=== PATIENT | male | born 1985 | race Hispanic/Latino ===

== ENCOUNTER 2022-11-23 06:58 | Day surgery (SDC) | payer BC ==
[2022-11-16 15:35] LABS: BASOPHILS % (AUTO) 0.7 % (0.0-5.0); EOSINOPHILS % (AUTO) 1.3 % (0.0-8.0); LYMPHOCYTES % (AUTO) 33.1 % (21.0-51.0); MEAN CORPUSCULAR HEMOGLOBIN 29.4 pg (27.0-33.0); MEAN CORPUSCULAR HGB CONC 32.2 g/dL (32.0-36.0); MEAN CORPUSCULAR VOLUME 91.1 fL (79-99); MONOCYTES % (AUTO) 10.3 % (3.0-13.0); NEUTROPHILS % (AUTO) 54.3 % (40.0-77.0); PLATELET COUNT (AUTO) 241 K/uL (130-400); RED BLOOD CELL COUNT(AUTO) 5.38 MIL/uL (4.50-6.20); RED CELL DISTRIBUTION WIDTH 14.9 % (11.0-15.5); WHITE BLOOD COUNT (AUTO) 9.6 K/uL (4.8-10.8)
[2022-11-16 17:33] VITALS: BP 156/97
[2022-11-23] VITALS (17 sets, daily range): BP systolic 130–156; BP diastolic 85–107
[~2022-11-23] VITALS: Ht 177.8 cm; Wt 117.4 kg
[2022-11-23] MEDS ORDERED: PROPOFOL 10 MG/ML 20ML VIAL IV ONE ×2 (07:35→08:39)
[2022-11-23] MEDS ORDERED: DEXAMETHASONE SOD PHOSPHATE 10MG/ML 1ML VIAL ONE (07:35)
[2022-11-23] MEDS ORDERED: LIDOCAINE PF 100MG/5ML (2%) SYRINGE 5ML ONE (07:35)
[2022-11-23] MEDS ORDERED: MIDAZOLAM HCL 1 MG/ML 2ML VIAL ONE (07:35)
[2022-11-23] MEDS ORDERED: ONDANSETRON 4MG INJ ONE (07:35)
[2022-11-23] MEDS ORDERED: FENTANYL CITRATE PF 50 MCG/1 ML 2ML VIAL ONE (07:36)
[2022-11-23] MEDS ORDERED: LACTATED RINGERS 1000ML 1,000 ML IV ONE (07:39)
[2022-11-23] MEDS ORDERED: CEFAZOLIN SODIUM 2 GM VIAL ONE (07:39)
[2022-11-23] MEDS ORDERED: KETOROLAC 30MG VIAL (30MG/ML) ONE (09:00)
[2022-11-23] MEDS ORDERED: BUPIVACAINE/EPI/PF 0.25% 30ML VIAL IJ ONE (09:15)
[2022-11-23] MEDS ORDERED: BACITRACIN 3.5 GM TUBE OP ONE (09:15)
[2022-11-23] MEDS ORDERED: MEPERIDINE-PF 25 MG/ML SYG ONE (09:48)
[2022-11-23] MEDS ORDERED: BUPIVACAINE/PF 0.25% 30ML VIAL IJ ONE (09:57)
[2022-11-23] MEDS ORDERED: BACITRACIN 28.4 GM OINT TP ONE (10:13)
[2022-11-23] MEDS ORDERED: BACITRACIN 1 EACH PACKET TP ONE (11:52)
== END 2022-11-23 12:15 | disposition home or self-care (01) ==
LOC: DAH 06:58
PROVIDERS: ATTEND Urology
DX: Z30.2 Encounter for sterilization (principal); Z20.822 Contact with and (suspected) exposure to COVID-19; N43.40 Spermatocele of epididymis, unspecified; E66.01 Morbid (severe) obesity due to excess calories
CPT/HCPCS: 85025; 87426; 36415; 55250; A6260; A4663; J7120 ×2; J3010; J1100; J3490 ×2; J2001; J2250; J2704 ×2; J2405; J1885; J2175; J0690; A4215; A4223; A4222; A4221; A4600